=== PATIENT | male | born 1980 | race Caucasian/White ===

== ENCOUNTER 2022-10-02 02:28 | Emergency (ER) | payer BC, SELFPAY ==
--- NOTE | 2022-10-02 03:10 | CT_ITS ---
[address] [address] Patient Name: LEVY JOSÉ MRN: [id number] date: 1980 Sex: M Assigned Patient Location: ED.MAIN Current Patient Location: Accession/Order Number: [id number] Exam Date: 10/02/2022 03:50 Report Date: 10/02/2022 04:39 At the request of: CAMILLE MARKER Procedure: CT lumbar spine wo con EXAMINATION: CT L-SPINE WO CONTRAST, 10/02/2022 4:29 AM EDT HISTORY: Lower lumbar pain without injury COMPARISON: XR L-spine 08/10/2019 TECHNIQUE: CT of the lumbar spine was performed without IV contrast. CT dose reduction technique was used, including Automated Exposure Control. FINDINGS: PARASPINAL AREA: Normal with no visible mass. BONES: CERVICAL DISC LEVELS: 12-L1: No significant disc/facet abnormality, spinal stenosis, or foraminal stenosis. L1-L2: No significant disc/facet abnormality, spinal stenosis, or foraminal stenosis. L2-L3: No significant disc/facet abnormality, spinal stenosis, or foraminal stenosis. L3-L4: Moderate or greater central canal and bilateral foramen narrowing secondary to mild disc bulging, minimal degenerative facet arthropathy, and congenitally short pedicles. L4-L5: Moderate or greater central canal and bilateral foramen narrowing secondary to mild disc bulging, minimal degenerative facet arthropathy, and congenitally short pedicles. L5-S1: Moderate or greater central canal and bilateral foramen narrowing secondary to moderate disc bulging with endplate osteophytes, minimal degenerative facet arthropathy, congenitally short pedicles. CT/CT lumbar spine wo con IMPRESSION: 1. No acute bone abnormality. 2. Mild degenerative changes of lower lumbar spine. 3. Moderate-marked central canal and foramen narrowing at multiple lower lumbar levels. 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 MRI should be considered for further evaluation. Electronically authenticated by: ALEXEI GARDNER Date: 10/02/2022 04:39
[2022-10-02 05:29] LABS: Clarity Urine CLEAR (CLEAR); Color Urine YELLOW (YELLOW)
[2022-10-02 05:30] LABS: Bilirubin Urine SMALL (NEGATIVE); Blood Urine MODERATE (NEGATIVE); Glucose Urine UA NEGATIVE (NEGATIVE); Ketones Urine NEGATIVE (NEGATIVE); Leukocyte Esterase Urine NEGATIVE (NEGATIVE); Nitrite Urine NEGATIVE (NEGATIVE); Protein Urine NEGATIVE (NEG/TRACE); Specific Gravity Urine >=1.030 (1.005-1.025)
[2022-10-02 05:31] LABS: Bacteria Urine SMALL #/HPF (NONE SEEN); Crystals Seen? None Seen #/HPF (None Seen); Mucus Urine NONE SEEN (NONE SEEN); RBC Urine 20-50 #/HPF (0-2); Squamous Epithelial Cell Urine FEW #/LPF (NONE/RARE); WBC Urine NONE SEEN #/HPF (NONE SEEN)
[2022-10-02 05:32] LABS: Cast Seen? SEEN #/LPF (NONE SEEN); Hyaline Casts Urine FEW; Urine Culture Indicated YES
== END 2022-10-02 06:00 | disposition home or self-care (01) ==
PROVIDERS: Emergency Provider Emergency Medicine; PCP Family Medicine
DX: M54.50 Low back pain, unspecified (principal); G89.29 Other chronic pain; Z79.899 Other long term (current) drug therapy
CPT/HCPCS: 72131; 81001; 87086; 99285; J2930

== ENCOUNTER 2022-10-12 09:28 | Outpatient (OUT) | payer BC, SELFPAY ==
--- NOTE | 2022-10-12 09:31 | MR_ITS ---
[address] [address] Patient Name: LEVY JOSÉ MRN: [id number] date: 1980 Sex: M Assigned Patient Location: MRI Current Patient Location: Accession/Order Number: [id number] Exam Date: 10/12/2022 09:49 Report Date: 10/13/2022 07:45 At the request of: RHEA JAMES Procedure: MR lumbar spine wo con EXAMINATION: MR lumbar spine wo con HISTORY: Low back pain M54.50 ; chronic lumbar and bilateral leg pain COMPARISON: CT lumbar spine 10/02/2022 TECHNIQUE: A variety of imaging planes and parameters were utilized for visualization of suspected pathology. FINDINGS: For the purposes of numbering, sagittal T2 image # 8 extends from the T12 vertebral body superiorly to the S3 level inferiorly. PARASPINAL AREA: Normal with no visible mass. BONES: No fracture, pars defect, or osseous lesion. CORD/CAUDA EQUINA: Normal caliber, contour, and signal intensity. DISC LEVELS: 12-L1: No significant disc/facet abnormality, spinal stenosis, or foraminal stenosis. L1-L2: No significant disc/facet abnormality, spinal stenosis, or foraminal stenosis. L2-L3: Marked central canal and mild bilateral foramen narrowing. Mild-moderate diffuse disc bulging, mild disc height reduction, and mild bilateral facet arthropathy. L3-L4: Marked central canal narrowing. Moderate foramen narrowing, left greater than right. Moderate diffuse disc bulging and small broad-based posterior disc protrusion; only mild disc desiccation and no significant disc height reduction. Mild bilateral facet arthropathy and ligamentum flavum thickening. L4-L5: Marked central canal narrowing. Mild right, moderate left foramen narrowing. Mild diffuse disc bulging and small posterior disc protrusion without significant disc height reduction. Mild degenerative facet arthropathy bilaterally. L5-S1: No significant disc/facet abnormality, spinal stenosis, or foraminal stenosis. MR/MR lumbar spine wo con IMPRESSION: 1. Marked central canal narrowing and mild-moderate foramen narrowing L2-L3, L3-4, and L4-5 secondary to mild-moderate disc bulging and small posterior disc protrusions coupled with mild degenerative facet arthropathy. The degree of disc bulging and degenerative changes is less than expected for the degree of central canal stenosis suggesting congenitally short pedicles also contribute. Electronically authenticated by: ALEXEI GARDNER Date: 10/13/2022 07:45
--- NOTE | 2022-10-12 09:32 | XR_ITS ---
The [address] [address] Patient Name: LEVY JOSÉ MRN: [id number] date: 1980 Sex: M Assigned Patient Location: MRI Current Patient Location: MRI Accession/Order Number: [id number] Exam Date: 10/12/2022 09:35 Report Date: 10/12/2022 09:50 At the request of: RHEA JAMES Procedure: XR foreign body eye EXAMINATION: XR foreign body eye HISTORY: Foreign body eye COMPARISON: No relevant comparison available. FINDINGS: ORBITS: Negative for a metallic foreign body. OTHER: Negative. XR/XR foreign body eye IMPRESSION: 1. No metallic foreign body within the orbits. Electronically authenticated by: ALEXEI GARDNER Date: 10/12/2022 09:50
== END 2022-10-12 09:29 | disposition home or self-care (01) ==
LOC: MRI 09:28
PROVIDERS: PCP Family Medicine; Visit Provider Family Medicine
DX: M54.50 Low back pain, unspecified (principal)
CPT/HCPCS: 70030; 72148

== ENCOUNTER 2024-11-27 15:07 | Outpatient (OUT) | payer BC, SELFPAY ==
--- OUTSIDE RECORDS SUMMARY | 2024-11-27 15:13 | XMS_ITS | Patient Health Record ---
Author Organization [facility] in [place] Address [address] [place] [address] Care Team Providers Care Finance Clerk Name Role Phone Martha Dietz Primary Care Provider [phone] Allergies No Known Allergies Results Component Value Reference Range Notes UA DIP NONAUTO WO MICRO (810 02) - IN OFFICE Reviewed date:11/27/2024 02:05:14 PM Interpretation: Performing Lab: Notes/Report: COLOR Red CLARITY Cloudy GLUCOSE Neg BILIRUBIN + KETONE Neg SPECIFIC GRAVITY 1.015 BLOOD +++ PH 5 PROTEIN 8 UROBILINOGEN + NITRITE Neg LEUKOCYTE ESTERASE +++ Reason For Referral No Information Medications Medication SIG (Take, Route, Fr equency, Duration) Notes Start Date End Date Status Pregabalin 50 MG TAKE 1 CAPSULE BY [facility] TWICE A DAY; Duration: 30 11/27/2024 Active Cipro 500 MG 1 tablet Orally ever y 12 hrs; Duration: 10 days 11/27/2024 Active Social History Tobacco Use: Social History Observation Description Date Details (start date - stop date) Never Smoker NA - NA Tobacco Use/Smoking Question Answer Notes Patient is a nonsmoker Tobacco use other than smoking: Question Answer Notes Are you an other tobacco user? Yes v ape AUDIT-C (Standard) Question Answer Notes Did you have a drink containing alcohol in the p ast year? No Points 0 Interpretation Negative Problems Problem Type SNOMED Code ICD Code Onset Dates Problem Status W/U Status Risk Notes Problem Degeneration of lumbar intervertebral disc (80145562) Degenerative disc disease, lumbar (M51.36) Active confirmed Vital Signs Temperature 97.7 degrees Fahrenheit 03/29/2024 Blood pressure diastolic 72 mm Hg 11/27/2024 Height 69 in 11/27/2024 Blood pressure systolic 126 mm Hg 11/27/2024 Weight 251.8 lbs 11/27/2024 BMI 37.18 kg/m2 11/27/2024 Encounters Encounter Location Date Provider Diagnosis [facility] [address] [place] [address] 03/29/2024 Martha Mirela Gastroenteritis K52. 9 [facility] [address] [place] [address] 11/27/2024 Martha Mirela Dysuria R30.0 and Ba ck pain M54.9 Assessments Encounter Date Diagnosis (ICD Code) Assessment Notes Treatment Notes Treatment Clinical Notes Section Notes 03/29/2024 Gastroenteritis (ICD-10 - K52.9) feeling better ok for OWN 11/27/2024 Dysuria (ICD-10 - R30.0) if feeling worse, ER for eval 11/27/2024 Back pain (ICD-10 - M54.9) Plan Of Treatment Pending Test Test Name Order Date UA (URINALYSIS, COMPLETE) 11/27/2024 Urine Culture 11/27/2024 MRI LSPINE WO CON 10/05/2022 Insurance Providers Payer Name Payer Address Payer Phone Subscriber Number Group Number Insured Name Patient Relationship to Insured Coverage Start Date Coverage End Date DONALD VERA [address] [place] [address] [id number] José Manuel Stephenson Self - patient is the insured Medical (General) History Medical History History ICD Code Back pain M54.9 COVID-19 U07.1 Cellulitis L03.90 Degeneration of intervertebral disc of l umbar region M51.36 GERD without esophagitis K21.9 Insomnia G47.00 Pulmonary nodule R91.1 Osteoarthritis of spine with radiculopat hy, lumbar region M47.26 Ventral hernia K43.9 Vapes nicotine containing substance Z72. 0 Surgical History Surgery Date(Month/Year) decompression L2 L3 L4 12/21
--- OUTSIDE RECORDS SUMMARY | 2024-11-27 15:13 | XMS_ITS | Clinical Summary ---
Author Organization [facility] Address [id number] [address] [place] [address] Care Team Providers Care Oracle Technical Developer Name Role Phone John Luna DO Primary Care Provider Dolly figueroa Allergies No known active allergies Medications CHANTIX CONTINUING MONTH BOX 1 mg tablet 07/25/2016 Act pat traMADol (ULTRAM) 50 mg tablet TAKE 1 TABLET BY MOUTH EVERY DAY *MUST LAST 30 DAYS* 0 06/30/2016 Active ibuprofen (ADVIL,MOTRIN) 600 mg tablet Take 600 mg by mouth 3 (three) times a day. 0 06/02/2016 Active Active Problems No known active problems Family History Medical History Relation Name Comments Heart disease Father Diabetes Maternal Grandmother Diabetes Mother Heart disease Mother Relation Name Status Comments Father Maternal Grandmother Mother Social History Tobacco Use Types Packs/Day Years Used Date Smoking Tobacco: Every Day Cigarettes Alcohol Use Standard Drinks/Week Comments Yes 0 (1 standard drink = 0.6 oz pur e alcohol) RARE Childcare Answer Date Recorded Childcare Unknown 08/10/2018 Employment Answer Date Recorded Employment Unknown 08/10/2018 Purpose - Life Answer Date Recorded Purpose and direction in life Unknown Sex and Gender Information Value Date Recorded Sex Assigned at Not on file Legal Sex Male 10:56 AM EDT Gender Identity Not on file Sexual Orientation Not on file Last Filed Vital Signs Vital Sign Reading Time Taken Comments Blood Pressure 130/76 08/19/2016 1:03 PM EDT Pulse - - Temperature - - Respiratory Rate - - Oxygen Saturation - - Inhaled Oxygen Concentration - - Weight 123.8 kg (273 lb) 08/19/2016 1:03 PM EDT Height 175.3 cm (5' 9 ) 08/19/2016 1:03 PM EDT Body Mass Index 40.32 08/19/2016 1:03 PM EDT Plan of Treatment Health Maintenance Due Date Last Done Comments Depression Screening 1993 Tobacco Screening 1993 Adult BMI Screening 12/17/1999 DTaP,Tdap and Td Vaccines (1 - Tdap) 2000 Influenza Vaccine 10/30/2024 Medical Devices Not on file Insurance Care Teams Oracle Technical Developer Relationship Specialty Start Date End Date John Luna DO PCP - General 07/07/16
[2024-11-27 15:41] LABS: Glucose Urine UA COLOR INTERFERENCE mg/dL (NEGATIVE)
[2024-11-27 16:01] LABS: Cast Seen? NONE SEEN #/LPF (NONE SEEN); Crystals Seen? None Seen #/HPF (None Seen); Urine Culture Indicated ALREADY ORDERED
== END 2024-11-27 15:08 | disposition home or self-care (01) ==
LOC: LAB 15:11
PROVIDERS: PCP Family Medicine; Visit Provider Nurse Practitioner Family
DX: R30.0 Dysuria (principal)
CPT/HCPCS: 81001; 87086; 87088; 87186

== ENCOUNTER 2024-12-19 16:21 | Outpatient (OUT) | payer BC, SELFPAY ==
--- OUTSIDE RECORDS SUMMARY | 2024-12-14 09:27 | XMS_ITS ---
Author Organization [facility] [place] Address [address] [place] [address] Care Team Providers Care Transformation Coach Name Role Phone Martha Dietz Primary Care Provider REASON FOR VISIT Repeat UA CS- LMTCB X 3 Encounters Encounter Location Date Provider Diagnosis [facility] [address] [place] [address] 12/14/2024 Martha Dietz UTI (urinary tract infection) N39.0 Assessments Encounter Date Diagnosis (ICD Code) Assessment Notes Treatment Notes Treatment Clinical Notes Section Notes 12/14/2024 UTI (urinary tract infection) (I CD-10 - N39.0) Plan Of Treatment Pending Test Test Name Order Date UA (URINALYSIS, COMPLETE) 12/14/2024 Urine Culture 12/14/2024 URINE MICROSCOPIC ONLY 12/14/2024 Progress Notes * SEEMAJosé Manuel LDOB:[birth year] (44 yo M)Acc No.[id number]:12/14/2024 Patient:?José Manuel STEPHENSON Jefry :1980???Age:43 Y???Sex:MalePhone:[phone] Address:[address] [place] [address] [place] [address] Subjective: * Chief Complaints: * R epeat UA CS- LMTCB X 3 * Medical History: * Surgical History: * Hospitalization/Major Diagno stic Procedure: * Medications: Objective: * Vitals: * Physical Examination: ??? Assessment: * Assessment: 1.?UTI (urinary tract infection) - N39.0 (Primary)??? Plan: * Treatment: ?LAB: UA (URINALYSIS, COMPLETE) ?LAB: Urine Culture ?LAB: URINE MICROSCOPIC ONLY * Procedure Codes: * true * Date:?Generated for Printing/Faxing/eTransmitting on:?12/19/2024 04:22 PM EDT
--- OUTSIDE RECORDS SUMMARY | 2024-12-19 16:23 | XMS_ITS | Clinical Summary ---
Author Organization [facility] Address [address] [place] [address] Care Team Providers Care Sewer Pipe Cleaner Name Role Phone Unavailable Primary Care Provider Unavailabl e Social History Tobacco UseTypesPacks/DayYears UsedDateSmoking Tobacco: Never AssessedSex and Gender InformationValueDate RecordedSex Assigned at BirthNot on fileLegal Sex Male05/13/2022 11:21 PM EDTGender IdentityNot on fileSexual OrientationNot on file Plan of Treatment Not on file
--- OUTSIDE RECORDS SUMMARY | 2024-12-19 16:23 | XMS_ITS | Clinical Summary ---
Author Organization [facility] Address [id number] [address] [place] [address] Care Team Providers Care Cook Sauce Name Role Phone John Luna DO Primary Care Provider Dolly figueroa Allergies No known active allergies Medications MedicationSigDispense QuantityRefillsLast FilledStart DateEnd DateStatus CHANTIX CONTINUING MONTH BOX 1 mg tablet 07/25/2016Active traMADol (ULTRAM) 50 mg tablet TAKE 1 TABLET BY MOUTH EVERY DAY *MUST LAST 30 DAYS*Active ibuprofen (ADVIL,MOTRIN) 600 mg tablet Take 600 mg by mouth 3 (three) times a day.Active Active Problems No known active problems Family History Medical HistoryRelationNameCommentsHeart diseaseFatherDiabetesMaternal GrandmotherDiabetesMotherHeart diseaseMotherRelationNameStatusCommentsFather Maternal GrandmotherMother Social History Tobacco UseTypesPacks/DayYears UsedDateSmoking Tobacco: Every DayCigarettes Alcohol UseStandard Drinks/WeekCommentsYes0 (1 standard drink = 0.6 oz pure alcohol)RAREChildcareAnswerDate HsmmnwnmYmajwjxlzNbvzgfc78/12/2019Employment AnswerDate PemyfntkFklqwsxziuBzvwjeg68/12/2019Purpose - LifeAnswerDate Recorded Purpose and direction in oztnEtruorl19/11/2021ex and Gender InformationValue Date RecordedSex Assigned at BirthNot on fileLegal DsqHsoe2807/07/2016 10:56 AM EDTGender IdentityNot on fileSexual OrientationNot on file Last Filed Vital Signs Vital SignReadingTime TakenCommentsBlood Sfsgfgvs373/7606 1:03 PM EDT Pulse--Temperature--Respiratory Rate--Oxygen Saturation--Inhaled Oxygen Concentration--Ruilcc321.8 kg (273 lb)08/19/2016 1:03 PM RWCSmmusi044.3 cm (5' 9 )08/19/2016 1:03 PM EDTBody Mass Index40.32008/19/2016 1:03 PM EDT Plan of Treatment Health MaintenanceDue DateLast DoneCommentsDepression Xysdowmzv30/18/1994Tobacco Okxulibnh43/18/1994Adult BMI Zzuwqwyls40/18/2000DTaP,Tdap and Td Vaccines (1 - Tdap)2000Influenza Tskrupg1010/30/2024 Medical Devices Not on file Insurance Care Teams Team MemberRelationshipSpecialtyStart DateEnd Date John Luna DO PCP - [facility]07/07/16
--- OUTSIDE RECORDS SUMMARY | 2024-12-19 16:23 | XMS_ITS | Patient Health Record ---
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 Name Role Phone Martha Dietz Primary Care Provider Allergies No Known Allergies Results Component Value Reference Range Notes UA DIP NONAUTO WO MICRO (810 02) - IN OFFICE Reviewed date:11/27/2024 02:05:14 PM Interpretation: Performing Lab: Notes/Report: COLOR Red CLARITYCloudyGLUCOSENegBILIRUBIN+KETONENegSPECIFIC GRAVITY1.015BLOOD+++PH5 [id number]+NITRITENegLEUKOCYTE ESTERASE+++UA RANDOM W or MICROSCOPIC Reviewed date:11/30/2024 11:05:41 AM Interpretation: Performing Lab: Notes/Report: [facility] ,Color UrineDK REDYELLOWClarity UrineCLOUDYCLEARSpecific [place] Urine1.030 1.005-1.025pH UrineCOLOR INTERFERENCE5.0-9.0Protein UrineCOLOR INTERFERENCE NEG/TRACE mg/dLGlucose Urine UACOLOR INTERFERENCENEGATIVE mg/dLBilirubin Urine COLOR INTERFERENCENEGATIVEKetones UrineCOLOR INTERFERENCENEGATIVE mg/dLBlood UrineCOLOR INTERFERENCENEGATIVENitrite UrineCOLOR INTERFERENCENEGATIVE Urobilinogen UrineCOLOR INTERFERENCE0.2-1.0 EU/dLLeukocyte Esterase UrineCOLOR INTERFERENCENEGATIVEWBC Qxqkn15-30MCAX SEEN #/HPFRBC Urine>1000-2 #/HPFBacteria UrineTRACENONE SEEN #/HPFMucus UrineNONE SEENNONE SEENSquamous Epithelial Cell UrineNONE SEENNONE/RARE #/LPFCrystals Seen?None SeenNone Seen #/HPFCast Seen? NONE SEENNONE SEEN #/LPFUrine Culture IndicatedALREADY ORDEREDPerforming Lab:see noteML - [facility] LBUrine Culture - [facility] Reviewed date:11/30/2024 02:25:38 PM Interpretation: Performing Lab: Notes/Report: [facility] ,Urine Culture - [facility]See Below For Report Urine [facility] Testing performed at [facility] O:ESCCOL Isolated Urine Culture - [facility] [place] Count Organism: 1.1 Antibiotic Interpretation LETI Status Urine Culture - [id number] [place] [address] Urine Culture - [facility] Testing performed at [facility] O:ESCCOL Isolated Urine Culture - [facility] [place] Count Organism: 1.1 Antibiotic Interpretation LETI Status Urine Culture - [facility]MCSee Below For Report Urine Culture [facility] Testing performed at [facility] O:ESCCOL Isolated Urine Culture - [facility] [place] Count Organism: 1.1 Antibiotic Interpretation LETI Status Urine Culture - [facility]MCSee Below For Report Urine Culture [facility] Testing performed at [facility] O:ESCCOL Isolated Urine Culture - [facility] [place] Count Organism: 1.1 Antibiotic Interpretation LETI Status Urine Culture - [facility]>100,000 Urine Culture - [facility] Testing performed at [facility] O:ESCCOL Isolated Urine Culture - [facility] [place] Count Organism: 1.1 Antibiotic Interpretation LETI Status Urine Culture - [facility]See Below For Report Urine [facility] Testing performed at [facility] O:ESCCOL Isolated Urine Culture - [facility] [place] Count Organism: 1.1 Antibiotic Interpretation LETI Status Urine Culture - FRMCAmikacin S F Urine Culture - [facility] Testing performed at [facility] O:ESCCOL Isolated Urine Culture - [facility] [place] Count Organism: 1.1 Antibiotic Interpretation LETI Status Urine Culture - FRMCAmoxicillin/Clavulanate S F Urine Culture - [facility] Testing performed at [facility] O:ESCCOL Isolated Urine Culture - [facility] [place] Count Organism: 1.1 Antibiotic Interpretation LETI Status Urine Culture - FRMCAmpicillin S F Urine Culture - [facility] Testing performed at [facility] O:ESCCOL Isolated Urine Culture - [facility] [place] Count Organism: 1.1 Antibiotic Interpretation LETI Status Urine Culture - FRMCAztreonam S F Urine Culture - [facility] Testing performed at [facility] O:ESCCOL Isolated Urine Culture - [facility] [place] Count Organism: 1.1 Antibiotic Interpretation LETI Status Urine Culture - FRMCCeftazidime S F Urine Culture - [facility] Testing performed at [facility] O:ESCCOL Isolated Urine Culture - [facility] [place] Count Organism: 1.1 Antibiotic Interpretation LETI Status Urine Culture - FRMCCeftazidime/Avibactam S F Urine Culture - [facility] Testing performed at [facility] O:ESCCOL Isolated Urine Culture - [facility] [place] Count Organism: 1.1 Antibiotic Interpretation LETI Status Urine Culture - FRMCCeftolozane/Tazobactam S F Urine Culture - [facility] Testing performed at [facility] O:ESCCOL Isolated Urine Culture - [facility] [place] Count Organism: 1.1 Antibiotic Interpretation LETI Status Urine Culture - FRMCCiprofloxacin S F Urine Culture - [facility] Testing performed at [facility] O:ESCCOL Isolated Urine Culture - [facility] [place] Count Organism: 1.1 Antibiotic Interpretation LETI Status Urine Culture - FRMCErtapenem S F Urine Culture - [facility] Testing performed at [facility] O:ESCCOL Isolated Urine Culture - [facility] [place] Count Organism: 1.1 Antibiotic Interpretation LETI Status Urine Culture - FRMCGentamicin S F Urine Culture - [facility] Testing performed at [facility] O:ESCCOL Isolated Urine Culture - [facility] [place] Count Organism: 1.1 Antibiotic Interpretation LETI Status Urine Culture - FRMCLevofloxacin S F Urine Culture - [facility] Testing performed at [facility] O:ESCCOL Isolated Urine Culture - [facility] [place] Count Organism: 1.1 Antibiotic Interpretation LETI Status Urine Culture - FRMCMeropenem S F Urine Culture - [facility] Testing performed at [facility] O:ESCCOL Isolated Urine Culture - [facility] [place] Count Organism: 1.1 Antibiotic Interpretation LETI Status Urine Culture - FRMCMeropenem/Vaborbactam S F Urine Culture - [facility] Testing performed at [facility] O:ESCCOL Isolated Urine Culture - [facility] [place] Count Organism: 1.1 Antibiotic Interpretation LETI Status Urine Culture - FRMCNitrofurantoin S F Urine Culture - [facility] Testing performed at [facility] O:ESCCOL Isolated Urine Culture - [facility] [place] Count Organism: 1.1 Antibiotic Interpretation LETI Status Urine Culture - FRMCTetracycline S F Urine Culture - [facility] Testing performed at [facility] O:ESCCOL Isolated Urine Culture - [facility] [place] Count Organism: 1.1 Antibiotic Interpretation LETI Status Urine Culture - FRMCTigecycline S F Urine Culture - [facility] Testing performed at [facility] O:ESCCOL Isolated Urine Culture - [facility] [place] Count Organism: 1.1 Antibiotic Interpretation LETI Status Urine Culture - FRMCTobramycin S F Urine Culture - [facility] Testing performed at [facility] O:ESCCOL Isolated Urine Culture - [facility] [place] Count Organism: 1.1 Antibiotic Interpretation LETI Status Urine Culture - FRMCAmpicillin/Sulbactam S F Urine Culture - [facility] Testing performed at [facility] O:ESCCOL Isolated Urine Culture - [facility] [place] Count Organism: 1.1 Antibiotic Interpretation LETI Status Urine Culture - FRMCCefazolin S F Urine Culture - [facility] Testing performed at [facility] O:ESCCOL Isolated Urine Culture - [facility] [place] Count Organism: 1.1 Antibiotic Interpretation LETI Status Urine Culture - FR[facility]CCefepime S F Urine Culture - [facility] Testing performed at [facility] O:ESCCOL Isolated Urine Culture - [facility] [place] Count Organism: 1.1 Antibiotic Interpretation LETI Status Urine Culture - FRMCCeftriaxone S F Urine Culture - [facility] Testing performed at [facility] O:ESCCOL Isolated Urine Culture - [facility] [place] Count Organism: 1.1 Antibiotic Interpretation LETI Status Urine Culture - FRMCCefuroxime S F Urine Culture - [facility] Testing performed at [facility] O:ESCCOL Isolated Urine Culture - [facility] [place] Count Organism: 1.1 Antibiotic Interpretation LETI Status Urine Culture - FRMCPiperacillin/Tazobactam S F Urine Culture - [facility] Testing performed at [facility] O:ESCCOL Isolated Urine Culture - [facility] [place] Count Organism: 1.1 Antibiotic Interpretation LETI Status Urine Culture - FRMCTrimethoprim/Sulfa S F Urine Culture - [facility] Testing performed at [facility] O:ESCCOL Isolated Urine Culture - [facility] [place] Count Organism: 1.1 Antibiotic Interpretation LETI Status Performing Lab:see note - [facility] SEE REPORT - Circulation Director Id information not found for OBX-specific 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 Yes How many drinks did you have on a typical day when you were drinking in the past year?1 or 2 drinks (0 point)How often did you have a drink containing alcohol in the past year?Less than monthly (1 point)Bzfenb2OrbdoiepnebkymGcrruljgLiltbmh use other than smoking: Question Answer Notes Are you an other tobacco user? Yes v ape AUDIT-C (Standard) Question Answer Notes Did you have a drink containing alcohol in the p ast year? No Havyfg9SldlifoctvxoxcOnywodfk Problems Problem Type SNOMED Code ICD Code Onset Dates Problem Status W/U Status Risk Notes Problem Degeneration of lumb ar intervertebral disc (92098828) Degenerative disc disease, lumbar (M51.36) Activeconfirmed Vital Signs Temperature 97.7 degrees Fahrenheit 03/29/2024 Blood pressure nbhcxmjug02 mm Hg11/27/20249224Ogrsxc97 in11/27/2024lood pressure icbwobcp840 mm Hg11/27/20242099Lalswj533.8 lbs11/27/2024BMI37.18 kg/m211/27/2024 Encounters Encounter Location Date Provider Diagnosis [id number] [place] [address] 03/29/2024 Marthacarl Dietz Gastroenteritis K52. [address] [place] [address] 11/27/2024 Martha Mirela Dysuria R30.0 and Ba ck pain M54.9 [id number] [place] [address] 11/30/2024 Marthacarl Dietz Dysuria R30.0 [address] [place] [address] 12/14/2024 Martha Sandsmer UTI (urinary tract infection) N39.0 Assessments Encounter Date Diagnosis (ICD Code) Assessment Notes Treatment Notes Treatment Clinical Notes Section Notes 03/29/2024 Gastroenteritis (ICD-10 - K52.9) feeling better ok for OWN 11/27/2024Dysuria (ICD-10 - R30.0)if feeling worse, ER for eval11/27/2024ack pain (ICD-10 - M54.9)11/30/2024Dysuria (ICD-10 - R30.0)12/14/2024UTI (urinary tract infection) (ICD-10 - N39.0) Plan Of Treatment Pending Test Test Name Order Date UA (URINALYSIS, COMPLETE) 11/27/2024 UA (URINALYSIS, COMPLETE) 11/30/2024 UA (URINALYSIS, COMPLETE) 12/14/2024 Urine Culture 11/27/2024 Urine Culture 12/14/2024 CULTURE URINE 11/30/2024 URINE MICROSCOPIC ONLY 12/14/2024 URINE MICROSCOPIC ONLY 11/30/2024 MRI LSPINE WO CON 10/05/2022 Insurance Providers Payer Name Payer Address Payer Phone Subscriber Number Group Number Insured Name Patient Relationship to Insured Coverage Start Date Coverage End Date [employer] [address] [place] [address] [id number] Toshia Stephensonelf - patient is the insured Medical (General) [...]
[2024-12-19 16:57] LABS: Glucose Urine UA NEGATIVE (NEGATIVE)
[2024-12-19 17:44] LABS: Crystals Seen? None Seen #/HPF (None Seen)
[2024-12-19 17:45] LABS: Cast Seen? NONE SEEN #/LPF (NONE SEEN); Urine Culture Indicated ALREADY ORDERED
== END 2024-12-19 16:22 | disposition home or self-care (01) ==
LOC: LAB 16:21
PROVIDERS: PCP Family Medicine; Visit Provider Family Medicine
DX: N39.0 Urinary tract infection, site not specified (principal)
CPT/HCPCS: 81001; 87086